=== PATIENT | male | born 1970 | race Caucasian/White ===

== ENCOUNTER → 2022-11-25 10:30 | Outpatient (CLI) | payer OTHER, SELFPAY ==
[2022-11-25 12:17] LABS: Add Manual Diff / Slide Review NO; Basophils Absolute Auto 0 /uL (0-100); Basophils Percent Auto 0.2 % (0-2); Eosinophils Absolute Auto 100 /uL (0-450); Eosinophils Percent Auto 0.8 % (2-4); Hematocrit 41.3 % (41-53); Hemoglobin 14.4 g/dL (13.5-17.5); Lymphocytes Absolute Auto 2800 /uL (1100-4500); Lymphocytes Percent Auto 41.3 % (25-40); Mean Corpuscular HGB Conc 34.8 % (30-36); Mean Corpuscular Hemoglobin 31.5 PG (26-34); Mean Corpuscular Volume 90.7 fL (80-100); Monocytes Absolute Auto 400 /uL (0-900); Monocytes Percent Auto 6.3 % (3-14); Neutrophils Absolute Auto 3500 /uL (1500-7000); Neutrophils Percent Auto 51.4 % (50-75); Platelet Count 226 X10^3/uL (150-400); Red Blood Cell Count 4.55 X10^6/uL (4.5-5.9); Red Cell Distribution Width 13.4 % (11.6-14.8); White Blood Cell Count 6.7 X10^3/uL (4.5-11.0)
[2022-11-25 13:44] LABS: HEMOLYSIS 20 (0-50)
[2022-11-25 13:50] LABS: Alanine Aminotransferase 52 IU/L (<50); Albumin 4.3 g/dL (3.5-5.0); Albumin Globulin Ratio 1.3 (1.0-2.8); Alkaline Phosphatase 79 U/L (38-126); Aspartate Aminotransferase 50 IU/L (17-59); BUN Creatinine Ratio 18.3 (6-22); Bilirubin Total 0.6 mg/dL (0.2-1.3); Blood Urea Nitrogen 17 mg/dL (9-20); Calcium 9.2 mg/dL (8.4-10.2); Carbon Dioxide 32 mmol/L (22-32); Chloride 102 mmol/L (98-107); Cholesterol 244 mg/dL (140-199); Estimated Glomerular Filt Rate > 60 mL/min (>60); Globulin 3.3 g/dL (1.7-4.1); Glucose 81 mg/dL (70-100); HDL Cholesterol 43 mg/dL (40-60); LDL Cholesterol Calculated 167 mg/dL (<100); Potassium 4.2 mmol/L (3.4-5.1); Sodium 140 mmol/L (137-145); Total Protein 7.6 g/dL (6.3-8.2); Triglycerides 171 mg/dL (35-150)
[2022-11-25 15:44] LABS: Prostate Specific Antigen 1.03 ng/mL (0.10-4.00)
[2022-11-25 18:51] LABS: HIV 1 & 2 Ab/Ag 4th Gen Combo NEGATIVE (NEGATIVE)
== END ==
PROVIDERS: PCP Family Medicine; Referring Provider Family Medicine; Visit Provider Family Medicine
DX: Z00.00 Encounter for general adult medical examination without abnormal findings (principal); Z80.42 Family history of malignant neoplasm of prostate
CPT/HCPCS: 36415; 80053; 80061; 84153; 85025; 87389

== ENCOUNTER 2023-05-23 09:55 | Day surgery (SDC) | payer OTHER, SELFPAY ==
--- NOTE | 2023-05-23 | PATH_ITS ---
[facility] Accession Number: [id number] No. of containers..04 Tissue . 01 Material submitted: . PART A: colon - ASCENDING POLYP PART B: colon - DESCENDING POLYP PART C: sigmoid colon - SIGMOID POLYPPPPS X 3 PART D: rectum - RECTAL POLYP . 01 Diagnosis: A. Ascending Colon, Polyp: Tubular adenoma. . B. Descending Colon, Polyp: Tubular adenoma. . C. Sigmoid Colon, Polyps x3: Tubular adenomas. . D. 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 No evidence of invasive carcinoma. MRV 05/26/2023 1639 Local . 01 Electronically signed: . Mariaa Henry MD, Pathologist NPI- [id number] . 01 Gross description: . Part A: ASCENDING POLYP: Received in formalin is 2 fragment(s) of george, soft tissue measuring 0.5 x 0.3 x 0.1 cm to 0.2 x 0.2 x 0.1 cm submitted entirely in 1 cassette(s) Part B: DESCENDING POLYP: Received in formalin is 1 fragment(s) of george, soft tissue measuring 0.4 x 0.4 x 0.3 cm submitted entirely in 1 cassette(s) Part C: SIGMOID POLYPPPPS X 3: Received in formalin is multiple fragment(s) of george, soft tissue measuring 2.5 x 1.2 x 0.5 cm in aggregate submitted entirely in 1 cassette(s) Part D: RECTAL POLYP: Received in formalin is 1 fragment(s) of george, soft tissue measuring 1.0 x 0.9 x 0.8 cm which is bisected and submitted entirely in 1 cassette(s) /AAY 05/24/2023 0501 Local . 01 Microscopic: . D. A p16 immunohistochemical stain was performed to characterize cells of interest, and is negative for block nuclear and cytoplasmic reactivity, which mitigates against an interpretation of high-grade squamous intraepithelial lesion. The control stain showed appropriate reactivity. . * This test was developed and its performance characteristics determined by [facility]. It has not been cleared or approved by the U.S. Food and Drug Administration. The FDA has determined that such clearance or approval is not necessary. This test is used for clinical purposes. It should not be regarded as investigational or for research. . 01 Pathologist provided ICD-10: D12.2, D12.4, D12.5, K62.82 . 01 CPT . 246962, 589516, 008790, 663875, G21641 Specimen Comment: A courtesy copy of this report has been sent to [phone] Performed at: 01 [facility] [address] [place] [address], [place], [place] [id number] MD Tevin Forman MD Phone: [phone]
[2023-05-23 10:14] VITALS: BP 139/92; PULSE 75; RESP 18; TEMP 36.2; O2SAT 97; BMI 29.7
[2023-05-23] MEDS: LACTATED RINGERS 1,000 ML 42 ML IV (10:18)
--- NOTE | 2023-05-23 12:51 | P.HP_ITS ---
History of Present Illness History of Present Illness Date Patient Seen: 05/23/23 Time Patient Seen: 12:51 Chief complaint: Colonoscopy Narrative: Here for colon cancer screening. [facility] Medical History Chicken pox (~1976) Family history of prostate cancer Family history of colon cancer Encounter for well adult exam without abnormal findings Surgical History Anesthesia History of sinus surgery (~2003) Family History Father Diabetes mellitus History of heart disease Hyperlipidemia Hypertension Arthritis Back problem Prostate cancer Mother History of heart disease Hyperlipidemia Hypertension Stroke Fuchs' corneal dystrophy Arthritis Brother Colon cancer Grandfather No problems noted. Grandmother Cancer Hypertension Arthritis Grandfather COPD (chronic obstructive pulmonary disease) Grandmother COPD (chronic obstructive pulmonary disease) Diabetes mellitus History of heart disease Social History household members: significant other Smoking Status: Never smoker alcohol intake: current Meds Home Medications and Allergies Home Medications Medication Instructions Recorded Confirmed Type No Known Home Medications 05/23/23 05/23/23 History Allergies Allergy/AdvReac Type Severity Reaction Status Date / Time No Known Drug Allergies Allergy Unverified 05/08/23 12:54 Review of Systems Review of Systems ROS: Yes All systems reviewed with the patient and are negative except as otherwise documented Exam Vital Signs (past 8 hours): - 05/23/23 10:14 Temperature 97.2 F L Pulse Rate 75 Respiratory Rate 18 Blood Pressure 139/92 H Pulse Oximetry 97 Oxygen Delivery Method Room Air Oxygen Delivery Method Room Air Const General: cooperative HENMT Head: normal to inspection Eyes General: appearance normal, both eyes and all related structures Neck Neck: normal visual inspection Chest Chest: normal inspection of the chest Resp Effort & Inspection: normal respiratory effort Cardio Rate: regular rate GI Inspection: normal to inspection Skin General: no rashes or lesions noted Neuro General: patient alert and patient awake Extrem General: normal to inspection and no pedal edema Psych Appearance: grossly normal Assessment & Plan Assessment & Plan narrative: 52-year-old male here for colon cancer screening. Colonoscopy is pursued today.
--- NOTE | 2023-05-23 12:52 | PM.PREOP ---
Pre-operative Note Interval Note History & Physical reviewed/Exam performed by Physician: Yes Changes to H&P: No ASA Class (for procedural sedation): II
--- NOTE | 2023-05-23 14:00 | P.OP.COLON_ITS ---
Operative Date/Time/Diagnoses Date of procedure: 05/23/23 Time of procedure: 14:02 Pre-op diagnosis: Colon cancer screening. Family history of colon cancer in his brother. Post-op diagnosis: same Procedure & Clinicians Study performed: Colonoscopy with hot and cold snare polypectomy, hot and cold forceps polypectomy plus Endoclip deployment. Same procedure as scheduled: Yes Indications: Family history colon cancer, here for screening. Surgeon: Fazal Avitia Procedure Notes SCOAP/Timeout: Done Procedure in detail: After the risks and benefits were explained, written and verbal informed consent was obtained. The patient was brought into the procedure room and placed into the left lateral decubitus position. Please see anesthesia notes for sedation details. Digital rectal examination was accomplished. The scope was introduced into the patient and advanced under direct visualization to the cecum as identified by the appendiceal orifice and ileocecal valve. The scope was slowly withdrawn to carefully examine the mucosa for any defects or lesions. Comprehensive imaging was accomplished throughout the rectum including the dentate line. The colon was decompressed, the scope was then removed from the p atient who tolerated the procedure well. Adult colonoscope Bowel prep adequate Procedure time was prolonged secondary to the number of polyps and the complexity of polypectomies. Twenty-two modifier is therefore requested. Scope withdrawal time: 50 minutes Sedation minutes: 62 Complications: none Impression: There was minimal diverticulosis in the sigmoid colon. In the sigmoid colon, there were 3 pedunculated polyps ranging in size from 7-9 mm. These were all removed with hot snare. One of the polypectomies demonstrated a small amount of oozing and we therefore applied a single endo clip to the base to confirm hemostasis. There was a small sessile 6 mm polyp in the descending colon removed with hot snare. In the ascending colon there was a diminutive polyp removed with cold snare and another diminutive polyp removed with cold forceps. In the rectum there was an approximately 12 x 7 mm sessile polyp that approached the dentate line. I attempted to grasp all of this with the polypectomy snare which came through quite easily without any hemorrhagic complications. However there was a small amount of polyp to the left with the base in the 6:00 location. This small 5 mm focus required that it be partially excised with the hot snare. I swapped out for a smaller 10 mm braided snare to try and get a better steam clothes press operator on the mucosa. I was not initially satisfied that all of the adenomatous mucosa had been removed from this location so we swapped out for the hot forceps and completely ablated/removed any remaining adenomatous appearing mucosa. Endoscopic diagnosis 1. Complex rectal polyp 2. Multiple colon polyps 3. Mild diverticulosis Post-procedure Plan for aftercare: 1. Await histopathology. 2. As long as histology is entirely benign, repeat surveillance in light of the piecemeal rectal polypectomy will be required in 6 months. Disposition: PACU
[2023-05-23 14:01] VITALS: BP 130/84; PULSE 57; RESP 19; TEMP 37; O2SAT 99
[2023-05-23 14:06] VITALS: BP 117/83; PULSE 59; RESP 20; O2SAT 99
[2023-05-23 14:11] VITALS: BP 136/81; PULSE 59; RESP 15; TEMP 36.7; O2SAT 98
== END 2023-05-23 14:30 | disposition home or self-care (01) ==
PROVIDERS: PCP Family Medicine; Referring Provider Internal Medicine Gastroenterology; Visit Provider Internal Medicine Gastroenterology
PROC: 0DJD8ZZ Inspection of Lower Intestinal Tract, Via Natural or Artificial Opening Endoscopic (ICD-10-PCS; CPT 45378; principal; 2023-05-23 11:00)
DX: Z12.11 Encounter for screening for malignant neoplasm of colon (principal); Z80.0 Family history of malignant neoplasm of digestive organs; K57.30 Diverticulosis of large intestine without perforation or abscess without bleeding; D12.2 Benign neoplasm of ascending colon; D12.4 Benign neoplasm of descending colon; D12.5 Benign neoplasm of sigmoid colon; K62.82 Dysplasia of anus
CPT/HCPCS: 45385; 45380; J2704

== ENCOUNTER → 2023-09-01 08:14 | Outpatient (CLI) | payer OTHER, SELFPAY ==
[2023-09-01 09:32] LABS: Cholesterol 219 mg/dL (140-199); HDL Cholesterol 37 mg/dL (40-60); LDL Cholesterol Calculated 159 mg/dL (<100); Triglycerides 114 mg/dL (35-150)
== END ==
PROVIDERS: PCP Family Medicine; Referring Provider Family Medicine; Visit Provider Family Medicine
DX: Z13.220 Encounter for screening for lipoid disorders (principal)
CPT/HCPCS: 36415; 80061

== ENCOUNTER → 2023-12-30 08:26 | Outpatient (CLI) | payer OTHER, SELFPAY ==
[2023-12-30 15:57] LABS: Alanine Aminotransferase 31 IU/L (<50); Albumin 4.3 g/dL (3.5-5.0); Albumin Globulin Ratio 1.7 (1.0-2.8); Alkaline Phosphatase 79 U/L (38-126); Aspartate Aminotransferase 30 IU/L (17-59); BUN Creatinine Ratio 13.6 (6-22); Blood Urea Nitrogen 15 mg/dL (9-20); Calcium 9.1 mg/dL (8.4-10.2); Carbon Dioxide 28 mmol/L (22-32); Chloride 106 mmol/L (98-107); Cholesterol 168 mg/dL (140-199); Estimated Glomerular Filt Rate > 60 mL/min (>60); Globulin 2.5 g/dL (1.7-4.1); Glucose 94 mg/dL (70-100); HDL Cholesterol 47 mg/dL (40-60); HEMOLYSIS < 15 (0-50); LDL Cholesterol Calculated 99 mg/dL (<100); Sodium 140 mmol/L (137-145); Total Protein 6.8 g/dL (6.3-8.2); Triglycerides 110 mg/dL (35-150)
[2023-12-30 16:27] LABS: Prostate Specific Antigen 0.896 ng/mL (0.10-4.00)
== END ==
PROVIDERS: PCP Family Medicine; Referring Provider Family Medicine; Visit Provider Family Medicine
DX: E78.5 Hyperlipidemia, unspecified (principal); Z12.5 Encounter for screening for malignant neoplasm of prostate; Z80.42 Family history of malignant neoplasm of prostate
CPT/HCPCS: 36415; 80053; 80061; 84153

== ENCOUNTER 2024-01-23 10:56 | Day surgery (SDC) | payer OTHER, SELFPAY ==
--- NOTE | 2024-01-23 | PATH_ITS ---
[facility] Accession Number: [id number] No. of containers..01 Tissue . 01 Material submitted: . rectum - RECTAL BIOPSIES . 01 Diagnosis: RECTAL BIOPSIES: Colonic mucosa with mild active inflammation, with focal erosion, and mild crypt architectural changes. No granulomas, dysplasia, or malignancy identified. See comment. . Specimen Comments: The histologic features raise a differential including infectious etiologies or drug-induced colitis (NSAIDs, etc). Some crypt architectural distortion may be seen in otherwise unremarkable rectal mucosa; however this finding also raises a broader differential including early involvement by inflammatory bowel disease or possibly sampling at a previous biopsy site. Correlation with clinical findings and with the endoscopic appearance is needed for further evaluation. [facility] 01/30/2024 1234 Local . 01 Electronically signed: . Tevin Forman MD, Pathologist NPI- [id number] . 01 Gross description: . Received in formalin with two patient identifiers and rectal biopsies, is a single george soft tissue fragment, 0.3 cm in greatest dimension. Submitted entirely in A1. ([id number]) /MRV 01/30/2024 1234 Local . 01 Pathologist provided ICD-10: K52.9 . 01 CPT . 517617 Specimen Comment: A courtesy copy of this report has been sent to [phone] Performed at: [address] [address], [place], [place] [id number] MD Tevin Forman MD Phone: [phone]
[2024-01-23 11:14] VITALS: BP 135/80; PULSE 65; RESP 18; TEMP 36.2; O2SAT 97
--- NOTE | 2024-01-23 11:46 | PM.OP.COLON ---
Operative Date/Time/Diagnoses Date of procedure: 01/23/24 Time of procedure: 11:46 Pre-op diagnosis: History of colon polyps and anal intraepithelial neoplasia. Post-op diagnosis: same Procedure & Clinicians Study performed: Colonoscopy with biopsies Same procedure as scheduled: Yes Indications: History of colon polyps and anal intraepithelial neoplasia. Surgeon: Fazal Avitia Procedure Notes SCOAP/Timeout: Done Procedure in detail: After the risks and benefits were explained, written and verbal informed consent was obtained. The patient was brought into the procedure room and placed into the left lateral decubitus position. Please see anesthesia notes for sedation details. Digital rectal examination was accomplished. The scope was introduced into the patient and advanced under direct visualization to the cecum as identified by the appendiceal orifice and ileocecal valve. The scope was slowly withdrawn to carefully examine the mucosa for any defects or lesions. Comprehensive imaging was accomplished throughout the rectum including the dentate line. The colon was decompressed, the scope was then removed from the patient who tolerated the procedure well. Adult colonoscope Bowel prep adequate Scope withdrawal time: 10 minutes Sedation minutes: 16 Complications: none Impression: There was no evidence of any residual polypoid structure at the dentate line. Minimal internal hemorrhoidal cushions grade 1 at most were noted. No rectal or colonic polyps were identified throughout. Interestingly, there were some scattered erosive features in the distal rectum. A couple of biopsies were acquired from this location for histopathologic analysis. Endoscopic diagnosis 1. No residual polyps 2. Subtle distal rectal erosions Post-procedure Plan for aftercare: 1. Await histology. 2. Considering prior history of multiple colon polyps, repeat colonoscopy would be suggested for 3 years' time. Disposition: PACU
[2024-01-23 11:48] VITALS: BP 97/65; PULSE 16; RESP 95; TEMP 36.8
[2024-01-23 11:53] VITALS: BP 100/69; PULSE 70; RESP 14; O2SAT 97
[2024-01-23 11:58] VITALS: BP 109/75; PULSE 71; RESP 12; O2SAT 98
[2024-01-23] MEDS: LACTATED RINGERS 1,000 ML 150 ML IV (12:01)
[2024-01-23 12:03] VITALS: BP 110/79; PULSE 70; RESP 12; O2SAT 98
== END 2024-01-23 12:14 | disposition home or self-care (01) ==
PROVIDERS: PCP Family Medicine; Referring Provider Internal Medicine Gastroenterology; Visit Provider Internal Medicine Gastroenterology
PROC: 0DJD8ZZ Inspection of Lower Intestinal Tract, Via Natural or Artificial Opening Endoscopic (ICD-10-PCS; CPT 45378; principal; 2024-01-23 11:30)
DX: Z12.11 Encounter for screening for malignant neoplasm of colon (principal); Z86.010 Personal history of colon polyps; K62.89 Other specified diseases of anus and rectum
CPT/HCPCS: 45380; J2704

== ENCOUNTER → 2025-01-04 09:57 | Outpatient (CLI) | payer OTHER, SELFPAY ==
[2025-01-04 10:30] LABS: Add Manual Diff / Slide Review NO; Basophils Absolute Auto 0 /uL (0-100); Basophils Percent Auto 0.2 % (0-2); Eosinophils Absolute Auto 100 /uL (0-450); Eosinophils Percent Auto 1.4 % (2-4); Hematocrit 43.3 % (41-53); Hemoglobin 14.8 g/dL (13.5-17.5); Lymphocytes Absolute Auto 2600 /uL (1100-4500); Mean Corpuscular HGB Conc 34.2 % (30-36); Mean Corpuscular Volume 90.8 fL (80-100); Monocytes Absolute Auto 400 /uL (0-900); Monocytes Percent Auto 6.4 % (3-14); Neutrophils Absolute Auto 3600 /uL (1500-7000); Platelet Count 243 X10^3/uL (150-400); Red Blood Cell Count 4.77 X10^6/uL (4.5-5.9); Red Cell Distribution Width 13.7 % (11.6-14.8); White Blood Cell Count 6.8 X10^3/uL (4.5-11.0)
[2025-01-04 11:06] LABS: Alanine Aminotransferase 26 IU/L (<50); Albumin 4.4 g/dL (3.5-5.0); Albumin Globulin Ratio 1.7 (1.0-2.8); Alkaline Phosphatase 72 U/L (38-126); Aspartate Aminotransferase 24 IU/L (17-59); BUN Creatinine Ratio 22.2 (6-22); Bilirubin Total 0.7 mg/dL (0.2-1.3); Blood Urea Nitrogen 22 mg/dL (9-20); Calcium 9.3 mg/dL (8.4-10.2); Carbon Dioxide 27 mmol/L (22-32); Chloride 104 mmol/L (98-107); Cholesterol 188 mg/dL (140-199); Estimated Glomerular Filt Rate > 60 mL/min (>60); Globulin 2.6 g/dL (1.7-4.1); Glucose 93 mg/dL (70-99); HDL Cholesterol 47 mg/dL (40-60); HEMOLYSIS < 15 (0-50); LDL Cholesterol Calculated 104 mg/dL (<100); Potassium 4.7 mmol/L (3.4-5.1); Sodium 139 mmol/L (137-145); Triglycerides 186 mg/dL (35-150)
[2025-01-04 11:37] LABS: Prostate Specific Antigen 1.19 ng/mL (0.10-4.00)
== END ==
PROVIDERS: PCP Family Medicine; Referring Provider Family Medicine; Visit Provider Family Medicine
DX: Z00.00 Encounter for general adult medical examination without abnormal findings (principal); E78.00 Pure hypercholesterolemia, unspecified; Z80.42 Family history of malignant neoplasm of prostate
CPT/HCPCS: 36415; 80053; 80061; 84153; 85025